=== PATIENT | male | born 1950 | race Caucasian/White ===

== ENCOUNTER 2017-08-09 14:00 | Outpatient (RCR) | payer BC, MEDICARE ==
[~2017-08-09 14:00] MED LIST: ASPIRIN 81M81 MG/TA2 PO; CRESTOR5 MG PO; FORT1000TA PO; HCTZ 25MG TAB25 MG PO; JANUVIA25 MG PO; JARDIANCE25 PO; LYRICA 100MG C100 M1 PO; NAPROSYN500 MG PO; PRINZIDE 25 MG-1 TAB PO; VICTOZA6 MG/ML SC; ZANTAC 150MG T150 MG PO; ZANTAC 7575 MG PO
== END 2017-08-13 ==
LOC: WSOT
DX: S14.129A Central cord syndrome at unspecified level of cervical spinal cord, initial encounter (principal)
CPT/HCPCS: G8978-GP; G8979-GP; G8987-GO; G8988-GO

== ENCOUNTER 2017-11-07 14:45 | Outpatient (RCR) | payer BC, MEDICARE | END 2017-11-13 | disposition home or self-care (01) | LOC: MKS.ESL.PT | DX: S14.129D Central cord syndrome at unspecified level of cervical spinal cord, subsequent encounter (principal) | CPT/HCPCS: G8978-GP; G8979-GP; G8984-GO; G8985-GO ==

== ENCOUNTER 2018-02-08 13:00 | Outpatient (RCR) | payer BC, MEDICARE | END 2018-02-12 | disposition home or self-care (01) | LOC: MKS.ESL.OT | DX: S14.129D Central cord syndrome at unspecified level of cervical spinal cord, subsequent encounter (principal) | CPT/HCPCS: G8978-GP; G8979-GP ==

== ENCOUNTER → 2018-02-21 | Outpatient (CLI) | payer BC | LOC: COL.RAD 08:43 | DX: M51.26 Other intervertebral disc displacement, lumbar region (principal); M48.062 Spinal stenosis, lumbar region with neurogenic claudication; G95.9 Disease of spinal cord, unspecified; M48.061 Spinal stenosis, lumbar region without neurogenic claudication; M46.85 Other specified inflammatory spondylopathies, thoracolumbar region; M50.021 Cervical disc disorder at C4-C5 level with myelopathy; M43.22 Fusion of spine, cervical region; M48.02 Spinal stenosis, cervical region; M25.78 Osteophyte, vertebrae ==

== ENCOUNTER → 2018-03-16 | Outpatient (CLI) | payer BC | LOC: COL.RAD 09:28 | DX: M43.16 Spondylolisthesis, lumbar region (principal); M25.78 Osteophyte, vertebrae; M47.814 Spondylosis without myelopathy or radiculopathy, thoracic region; M51.24 Other intervertebral disc displacement, thoracic region; M99.72 Connective tissue and disc stenosis of intervertebral foramina of thoracic region; M46.84 Other specified inflammatory spondylopathies, thoracic region; M48.04 Spinal stenosis, thoracic region ==

== ENCOUNTER → 2018-06-11 | Outpatient (CLI) | payer BC | LOC: COL.RAD 17:18 | DX: M48.062 Spinal stenosis, lumbar region with neurogenic claudication (principal); M47.816 Spondylosis without myelopathy or radiculopathy, lumbar region; Z98.890 Other specified postprocedural states ==

== ENCOUNTER → 2018-08-21 | Outpatient (RCR) | payer BC | END | disposition home or self-care (01) | LOC: MKS.ESL.PT → MKS.ESL.OT 05-23 13:45 → MKS.ESL.PT 05-29 13:30 → MKS.ESL.OT 06-07 14:30 → MKS.ESL.PT 06-08 13:15 → MKS.ESL.OT 06-14 15:15 → MKS.ESL.PT 06-19 13:45 → MKS.ESL.OT 06-28 13:45 → MKS.ESL.PT 07-31 14:15 → MKS.ESL.OT 08-01 14:00 → MKS.ESL.PT 08-02 14:15 | DX: Z47.89 Encounter for other orthopedic aftercare (principal); Z91.81 History of falling; Z79.84 Long term (current) use of oral hypoglycemic drugs; Z79.82 Long term (current) use of aspirin; Z79.899 Other long term (current) drug therapy | CPT/HCPCS: G8984-GO; G8985-GO ==

== ENCOUNTER 2018-10-18 13:00 | Outpatient (RCR) | payer BC | END 2018-12-20 | disposition home or self-care (01) | LOC: MKS.ESL.PT | DX: S14.129D Central cord syndrome at unspecified level of cervical spinal cord, subsequent encounter (principal) ==

== ENCOUNTER 2018-11-14 13:00 | Outpatient (RCR) | payer BC | END 2018-11-21 | disposition still patient (30) | LOC: MKS.ESL.PT | DX: M50.00 Cervical disc disorder with myelopathy, unspecified cervical region (principal); Z91.81 History of falling; Z98.1 Arthrodesis status ==

== ENCOUNTER 2019-01-03 10:10 | Outpatient (RCR) | payer BC | END 2019-04-03 | disposition still patient (30) | LOC: MKS.ESL.PT | DX: S14.129A Central cord syndrome at unspecified level of cervical spinal cord, initial encounter (principal) ==

== ENCOUNTER → 2019-03-05 | Outpatient (RCR) | payer BC, MEDICARE | END | disposition still patient (30) | LOC: MKS.ESL.PT → MKS.ESL.OT 12-11 13:00 → MKS.ESL.PT 12-21 15:30 → MKS.ESL.OT 12-25 13:00 → MKS.ESL.PT 01-08 09:45 → MKS.ESL.OT 01-15 13:15 → MKS.ESL.PT 01-16 14:00 → MKS.ESL.OT 01-18 13:45 → MKS.ESL.PT 01-22 12:45 → MKS.ESL.OT 01-30 14:45 → MKS.ESL.PT 01-31 15:30 → MKS.ESL.OT 02-21 10:30 → MKS.ESL.PT 02-27 09:45 | DX: S14.129A Central cord syndrome at unspecified level of cervical spinal cord, initial encounter (principal); M48.061 Spinal stenosis, lumbar region without neurogenic claudication; M50.00 Cervical disc disorder with myelopathy, unspecified cervical region; Z98.890 Other specified postprocedural states ==

== ENCOUNTER 2019-05-13 10:30 | Outpatient (RCR) | payer BC | END 2019-06-04 | disposition still patient (30) | LOC: MKS.ESL.PT | DX: G95.9 Disease of spinal cord, unspecified (principal); M48.061 Spinal stenosis, lumbar region without neurogenic claudication; Z98.890 Other specified postprocedural states ==

== ENCOUNTER → 2021-06-10 | Outpatient (RCR) | payer BC | END | disposition still patient (30) | LOC: MKS.ESL.PT → MKS.ESL.OT 03-12 14:30 → MKS.ESL.PT 03-15 15:00 → MKS.ESL.OT 03-17 15:30 → MKS.ESL.PT 03-23 16:00 → MKS.ESL.OT 03-24 15:30 → MKS.ESL.PT 04-15 13:30 → MKS.ESL.OT 05-04 14:30 → MKS.ESL.PT 05-12 10:30 → MKS.ESL.OT 05-28 14:45 → MKS.ESL.PT 06-02 14:45 → MKS.ESL.OT 06-07 15:30 → MKS.ESL.PT 14:15 | DX: S14.109D Unspecified injury at unspecified level of cervical spinal cord, subsequent encounter (principal) ==

== ENCOUNTER 2021-07-27 11:15 | Outpatient (RCR) | payer BC | END 2021-09-03 | disposition home or self-care (01) | LOC: MKS.ESL.OT | DX: S14.109D Unspecified injury at unspecified level of cervical spinal cord, subsequent encounter (principal) ==

== ENCOUNTER 2021-09-24 13:23 | Day surgery (SDC) | payer BC ==
[~2021-09-24] VITALS: Ht 170.2 cm; Wt 93.0 kg
[2021-09-24] MEDS ORDERED: VESICARE10 MG PO (14:28)
[2021-09-24] MEDS ORDERED: FLOMAX 0.40.4 MG/CAP PO (14:28)
[2021-09-24] MEDS ORDERED: ZYLOPRIM 300MG300 MG PO (14:28)
[2021-09-24] MEDS ORDERED: GLUCOPHAGE1000 MG PO (14:29)
[2021-09-24] MEDS ORDERED: LYRICA 75MG CAP75 MG PO (14:29)
[2021-09-24] MEDS ORDERED: OZEMPIC0.25 MG/0. SQ (14:30)
[2021-09-24] MEDS ORDERED: PRINZIDE 12.5 M1 TAB PO (14:30)
[2021-09-24] MEDS ORDERED: PEPCID 20MG TAB20 MG PO (14:30)
[2021-09-24 14:42] VITALS: BP 96/67; PULSE 73; TEMP 97.7
[2021-09-24 16:15] VITALS: BP 83/54; PULSE 67
[2021-09-24 16:30] VITALS: BP 91/64; PULSE 67
[2021-09-24 16:45] VITALS: BP 107/48; PULSE 61
[2021-09-24 17:00] VITALS: BP 118/62; PULSE 63
--- NOTE | 2021-09-24 17:40 | NUR ---
1615 Pt returns from endo procedure via cart and RN assist to [facility]. Pt ambulates from cart to recliner with RN assist. Recliner moved next to cart for pt to pivot to recliner. Monitors on and alarms set. Call light within reach. Report received from OXANA Oconnor. Pt alert and oriented. Pt requests pudding and juice. Pt denies any pain or nausea. Pt's present in room. 1630 Pt taking food and drink well. No complications noted. 1705 Discharge instructions given to pt and . All questions answered to their satisfaction. Handed to pt are a thank you card and discharge information. 1740 Pt transferred out of the hospital via wheelchair and this RN assist, to private vehicle driven by pt's .
== END 2021-09-24 17:40 | disposition home or self-care (01) ==
LOC: SDCO 13:23
DX: K21.00 Gastro-esophageal reflux disease with esophagitis, without bleeding (principal); K44.9 Diaphragmatic hernia without obstruction or gangrene; D50.0 Iron deficiency anemia secondary to blood loss (chronic); D12.2 Benign neoplasm of ascending colon; D12.3 Benign neoplasm of transverse colon; C18.7 Malignant neoplasm of sigmoid colon; E11.9 Type 2 diabetes mellitus without complications; K59.09 Other constipation; I12.9 Hypertensive chronic kidney disease with stage 1 through stage 4 chronic kidney disease, or unspecified chronic kidney disease; N18.9 Chronic kidney disease, unspecified; E11.22 Type 2 diabetes mellitus with diabetic chronic kidney disease; Z79.84 Long term (current) use of oral hypoglycemic drugs; Z79.899 Other long term (current) drug therapy; Z80.0 Family history of malignant neoplasm of digestive organs
CPT/HCPCS: J2704; J7030

== ENCOUNTER 2021-10-22 10:43 | Emergency (ER) | payer BC ==
[~2021-10-22] VITALS: Ht 170.2 cm; Wt 88.6 kg
[~2021-10-22 10:43] MED LIST changes: +FLOMAX 0.40.4 MG/CAP PO; +GLUCOPHAGE1000 MG PO; +LYRICA 75MG CAP75 MG PO; +OZEMPIC0.25 MG/0. SQ; +PEPCID 20MG TAB20 MG PO; +PRINZIDE 12.5 M1 TAB PO; +VESICARE10 MG PO; +ZYLOPRIM 300MG300 MG PO
[2021-10-22 10:49] VITALS: TEMP 97.6
[2021-10-22 11:09] LABS: BASO % 0.2 % (0.0-2.0); EOS % 0.3 % (0.0-4.0); LYMPH # 0.9 K/mm3 (1.2-3.4); LYMPH % 10.2 % (20.0-51.0); MEAN CELL VOLUME 81 fl (80.0-100.0); MEAN CORPUSCULAR HEMOGLOBIN 27 pg (27-31); MEAN CORPUSCULAR HGB CONC 33 g/dl (33.0-37.0); MONO # 1.1 K/mm3 (0.1-0.6); MONO % 11.9 % (1.7-9.3); PLATELET COUNT 272 K/mm3 (130-400); RED BLOOD COUNT 3.76 M/mm3 (4.20-5.60); REDCELL DISTRIBUTION WIDTH-CV 16.5 % (11.5-14.5)
[2021-10-22 11:11] LABS: HEMATOCRIT 30.6 % (42.0-52.0)
[2021-10-22 11:24] LABS: ALANINE AMINOTRANSFERASE 20 U/L (0-55); ALBUMIN 3.1 gm/dL (3.4-4.8); ALKALINE PHOSPHATASE 97 U/L (40-150); ANION GAP 11 mmol/L (7-16); AST,SGOT 61 U/L (5-34); BILIRUBIN,TOTAL 0.7 mg/dL (0.2-1.2); BLOOD UREA NITROGEN 38 mg/dL (8-26); CALCIUM 8.8 mg/dL (8.4-10.2); CARBON DIOXIDE 23 mmol/L (23-31); CHLORIDE 101 mmol/L (98-107); CREATININE, serum 2.14 mg/dL (0.72-1.25); GLUCOSE 111 mg/dL (70-99); POTASSIUM 4.1 mmol/L (3.5-4.5); SODIUM 135 mmol/L (136-145); TOTAL PROTEIN 6.6 gm/dL (6.2-8.1)
[2021-10-22 11:31] LABS: TROPONIN-I < 0.010 ng/mL (0.00-0.033)
[2021-10-22] MEDS ORDERED: PROTONIX 40MG T40 MG PO (11:44)
[2021-10-22 14:00] LABS: COLLECTION METHOD CLEAN CATCH
[2021-10-22 14:10] LABS: AMORPHOUS CRYSTAL Present (NOT PRESENT); MUCOUS Present (NOT PRESENT); PH 5 (5-8); SQUAMOUS EPITHELIAL 0-2 /hpf (0-10); URINE APPEARANCE Clear (CLEAR/HAZY); URINE BACTERIA None Seen /hpf (NONE SEEN); URINE BILIRUBIN Negative (NEGATIVE); URINE BLOOD Negative (NEGATIVE); URINE COLOR Yellow (YELLOW); URINE GLUCOSE 3+ (NEGATIVE); URINE KETONE Negative (NEGATIVE); URINE LEUKOCYTE ESTERASE Negative (NEGATIVE); URINE NITRATE Positive (NEGATIVE); URINE PROTEIN(semi-quant) Negative (NEGATIVE); URINE RBC None Seen /hpf (0-2); URINE UROBILINOGEN Negative (NEGATIVE)
[2021-10-22] MEDS ORDERED: CEPHALEXIN500 M1 PO (14:38)
[2021-10-22 14:52] VITALS: BP 112/79; PULSE 70
[2021-10-26] MEDS ORDERED: CIALIS5 MG PO (13:32)
[2021-10-26] MEDS ORDERED: MEN'S ONE DAIL1 EACH PO (13:33)
== END 2021-10-22 14:57 | disposition home or self-care (01) ==
LOC: COL.ER 10:43
PROVIDERS: Physician Assistant
DX: I10 Essential (primary) hypertension (principal); C18.9 Malignant neoplasm of colon, unspecified; E11.9 Type 2 diabetes mellitus without complications; N39.0 Urinary tract infection, site not specified; Z79.84 Long term (current) use of oral hypoglycemic drugs; Z79.899 Other long term (current) drug therapy
CPT/HCPCS: J7030

== ENCOUNTER 2021-11-04 18:34 | Emergency (ER) | payer BC ==
[~2021-11-04] VITALS: Ht 170.2 cm; Wt 86.4 kg
[~2021-11-04 18:34] MED LIST changes: +CEPHALEXIN500 M1 PO; +CIALIS5 MG PO; +MEN'S ONE DAIL1 EACH PO; +PROTONIX 40MG T40 MG PO
[2021-11-04 18:58] VITALS: TEMP 98.5
[2021-11-04 20:30] LABS: BASO % 0.5 % (0.0-2.0); EOS # 0.1 K/mm3 (0.0-0.7); EOS % 1.7 % (0.0-4.0); GRAN # 2.7 K/mm3 (1.4-6.5); GRAN % 66.3 % (42.2-75.2); HEMOGLOBIN 10.1 g/dl (13.5-18.0); LYMPH % 24.1 % (20.0-51.0); MEAN CELL VOLUME 81 fl (80.0-100.0); MEAN CORPUSCULAR HEMOGLOBIN 26 pg (27-31); MEAN CORPUSCULAR HGB CONC 32 g/dl (33.0-37.0); MEAN PLATELET VOLUME 9.8 fl (7.4-10.4); MONO # 0.3 K/mm3 (0.1-0.6); MONO % 7.2 % (1.7-9.3); PLATELET COUNT 295 K/mm3 (130-400)
[2021-11-04 20:33] LABS: HEMATOCRIT 31.7 % (42.0-52.0)
[2021-11-04 20:43] LABS: ALBUMIN 3.4 gm/dL (3.4-4.8); BILIRUBIN,TOTAL 0.4 mg/dL (0.2-1.2); C-REACTIVE PROTEIN 10.67 mg/dL (0.00-0.50); CALCIUM 9.7 mg/dL (8.4-10.2); CREATININE, serum 1.61 mg/dL (0.72-1.25); TOTAL PROTEIN 7.4 gm/dL (6.2-8.1)
[2021-11-04] MEDS ORDERED: CEPHALEXIN500 M1 PO (21:45)
[2021-11-04 22:07] VITALS: BP 122/80; PULSE 88
== END 2021-11-04 22:07 | disposition home or self-care (01) ==
LOC: COL.ER 18:34
PROVIDERS: Nurse Practitioner
DX: S90.411A Abrasion, right great toe, initial encounter (principal); W01.0XXA Fall on same level from slipping, tripping and stumbling without subsequent striking against object, initial encounter
CPT/HCPCS: J0696